=== PATIENT | female | born 1985 | race Caucasian/White ===

== ENCOUNTER → 2018-02-22 | Outpatient (CLI) | payer OTHER ==
[~2018-02-22] MED LIST: AZELASTINE137 MCG/0. NASAL; FLOVENT HFA12 G1 INH; LEVOTHYROXINE137 MCG PO; MULTIVITAMINS1 EAC7 PO; ONDANSETRON ODT8 MG PO; RANITIDINE HCL300 MG PO; SINGULAIR 10 MG10 M1 PO
== END ==
LOC: ULTRA 08:07
DX: K80.20 Calculus of gallbladder without cholecystitis without obstruction (principal); R94.5 Abnormal results of liver function studies

== ENCOUNTER 2018-03-05 08:48 | Observation (INO) | payer OTHER ==
[~2018-03-05] VITALS: Ht 162.6 cm; Wt 90.7 kg
--- NOTE | ~2018-03-05 | H ---
[facility] [place] [address] HISTORY AND PHYSICAL Name: RYDER HERNANDEZ Room #: PRE [facility] M.R.#: [id number] Admission: Attend Phys: Jomar Armstrong MD Discharge: Date of : 81 Report #: [id number] THIS REPORT FOR: //name// CC: [facility] physician/PCP Jomar Armstrong DATE OF SERVICE: 03/05/2018 ADMITTING DIAGNOSIS: Cholecystitis with cholelithiasis. HISTORY OF PRESENT ILLNESS: The patient is a 33-year-old who about a month ago complained of being feverish and cold spells. This lasted for about 5 days. This thing got better. She thought that she had a viral illness. Subsequent to that, she started feeling sick again. She has been complaining of nausea and chills. The nausea seems to be related to eating food. When she switched herself to a bland diet, the nausea is not as bad. The patient has indigestion and has been taking quite a bit of Tums. Complains of belching. Her abdomen seems to be turning on herself. She has a bubbling sensation in her chest. She also has been taking Zantac. Has had episodes of diarrhea. One episode occurred after eating cheese and stuffed mushroom, things that she has been trying to avoid and she did have nausea issues after that. The patient has had some back pains. No prior issues with food. Low-grade temperature of 99s. No urinary symptoms. No family history of gallbladder disease. The patient came to see me after having a hepatobiliary scan that showed a low gallbladder ejection fraction of 10%. She did not have any symptom reproduction. She had not had an ultrasound yet. Ultrasound was ordered and she does have gallstone. There is a stone that measures about 1.4 cm that is at the neck of the gallbladder. The patient is recommended to have gallbladder removed to treat her symptomatic cholecystitis and cholelithiasis. PAST MEDICAL HISTORY: The patient has a history of asthma. She is hypothyroid. The patient denies heart disease, denies high blood pressure, denies diabetes, denies liver disease, denies kidney disease, and denies other pulmonary issues besides asthma. No history of bleeding disorder, no history of blood clot. MEDICATIONS: Synthroid 137 mcg a day, Singulair, multivitamin, Zantac, nasal spray for allergies. ALLERGIES TO MEDICATION: None. PAST SURGICAL HISTORY: The patient has had 2 C-sections. She has had a tonsillectomy and adenoidectomy. FAMILY HISTORY: There is high blood pressure, sleep apnea, thyroid disorder in the family. [address] [address] HISTORY AND PHYSICAL Name: RYDER HERNANDEZ Room #: PRE [facility] M.R.#: [id number] Admission: Attend Phys: Jomar Armstrong MD Discharge: Date of : 81 Report #: [id number] SOCIAL HISTORY: The patient works as an retail event assistant. She does not smoke. She drinks about 4 glasses of alcohol per week. REVIEW OF SYSTEMS: No headache or blurred vision. Occasional asthma. No numbness or weakness. No history of any weight loss. PHYSICAL EXAMINATION: GENERAL: The patient is well-developed female, in no acute distress. HEENT: Pupils react to light. Extraocular muscles are intact. Sclerae nonicteric. NECK: Soft and supple, no masses. LUNGS: Clear to auscultation. HEART: Regular rate and rhythm. No murmur or gallop. ABDOMEN: Soft and nontender. No mass, no ascites, no guarding. Negative Hinkle sign. EXTREMITIES: No cyanosis, clubbing or edema. IMPRESSION: The patient is a 33-year-old with nausea and back pain. She has had quite a bit of indigestion type symptoms. The patient initially had a PIPIDA scan that showed a poor gallbladder ejection fraction of 10%. Her ultrasound did show a gallstone. The patient clinically does have cholecystitis with chronic cholecystitis, cholelithiasis. Surgery is recommended. Laparoscopic cholecystectomy was discussed in detail. Risks of procedure discussed. Risks of bleeding, infection, common bile duct injury were discussed. The patient understands the procedure, the risks and wishes to proceed. By: [id number] Jomar Armstrong MD /nt
--- NOTE | ~2018-03-05 | O ---
[facility] [place] [address] [address] OPERATIVE REPORT Name: RYDER HERNANDEZ Room #: 424-P [facility] M.R.#: [id number] Admission: 03/05/18 Attend Phys: Jomar Armstrong MD Discharge: Date of : 81 Report #: [id number] THIS REPORT FOR: //name// CC: [facility] physician/PCP Jomar Armstrong DATE OF SERVICE: 03/05/2018 PREOPERATIVE DIAGNOSIS: Cholecystitis with cholelithiasis. POSTOPERATIVE DIAGNOSIS: Cholecystitis with cholelithiasis. PROCEDURE PERFORMED: Laparoscopic cholecystectomy with intraoperative cholangiogram. SURGEON: Jomar Armstrong M.D. ANESTHESIA: General anesthesia. COMPLICATIONS: None. ESTIMATED BLOOD LOSS: 5 mL FINDINGS: There was a 1.4 cm gallstone. There was significant cholesterolosis in the mucosa of the gallbladder. There were adhesions surrounding the gallbladder consistent with chronic inflammation. Intraoperative cholangiogram showed small sized common hepatic duct. No filling defect. DESCRIPTION OF PROCEDURE: With the patient under general anesthesia, the abdomen was prepped and draped in sterile fashion. IV antibiotic was administered. Timeout was performed. A 0.25% Marcaine was used to anesthetize the skin and subcutaneous tissue. The fascia was identified and brought up with hemostat. Fascia was then opened under visualization. It turned out the fascia was actually deeper. The Veress needle was then placed through the peritoneum. Abdominal cavity was insufflated with CO2. After creating pneumoperitoneum pressure of 15, an 11 mm trocar was placed into the pneumoperitoneum without difficulty. Two 5 mm trocars were placed in the right upper quadrant and a 5 mm trocar was placed in right epigastrium. The gallbladder was identified. Liver appeared normal. The gallbladder was lifted over the liver. There was adhesion to the gallbladder laterally of thin fatty tissue and these adhesions were taken down. Proximal gallbladder was then identified. A second grasper was placed in the proximal gallbladder. Peritoneum was then dissected free over the triangle of Calot mediolaterally and then medially. The cystic duct was then isolated. The common duct was essentially not visible. There was a darkish tissue, which was probably the common duct. This was medial posteriorly located. The cystic duct was then isolated. After isolating the cystic duct, a clip was placed in [facility] [address] [place] [address] OPERATIVE REPORT Name: RYDER HERNANDEZ Room #: 424-P [facility] M.R.#: [id number] Admission: 03/05/18 Attend Phys: Jomar Armstrong MD Discharge: Date of : 81 Report #: [id number] junction of cystic duct to the gallbladder. Opening was made in the cystic duct. Cholangiogram catheter was placed. I could only get the tip of the cholangiogram catheter in the opening of the cystic duct. The catheter was held with a clip. Fluoroscopic cholangiogram was obtained. The contrast did flow through the catheter into the cystic duct and then the common duct. Common duct filled out well, small in size, no filling defect. There was some leak of contrast at the cannulation site due to the difficulty getting a seal here. The catheter was then removed. The proximal cystic duct was then clipped x 2 and then divided. The cystic artery was then isolated. The cystic artery was tacked to divide, clipped x 2 proximally, 1 distally and then divided. There was a posterior small cystic artery, this was also isolated and clipped x 2 proximally and 1 distally and then divided. Gallbladder freed from the liver bed without difficulty using cautery. Once the gallbladder was free, it was removed through the infraumbilical port by placing that into a specimen bag. The specimen bag was brought out, part of the gallbladder was then seen. The gallbladder was grasped and the bile was suctioned out. The gallbladder was then able to be pulled out in the bag intact. The gallbladder was opened up. There was a stone identified in the gallbladder that measured just like the ultrasound suggested a 1.4 mm and the gallbladder wall containing pretty severe yellowish streaking consistent with cholesterolosis. Liver bed was checked, hemostasis excellent. The clips were intact. Irrigation was performed. Irrigation was aspirated out. Trocars were then removed under visualization. CO2 was evacuated. The fascia defect was then better identified. The graft hemostat was placed on the fascia edges. The fascia was then closed with [id number] 0 Vicryl. We will consult closed with [id number] 0 Vicryl x 1 with single interrupted 0 Vicryl. Skin was irrigated. Skin was then closed with 5-0 PDS. Steri-Strip, Band-Aids applied. The patient tolerated procedure well. By: [id number] Jomar Armstrong MD /nt
[2018-03-05 10:50] VITALS: BP 117/75
[2018-03-05 15:08] VITALS: BP 121/77
[2018-03-05 15:44] VITALS: BP 113/70
[2018-03-05 19:20] VITALS: BP 122/79
[2018-03-06 03:15] VITALS: BP 100/53
[2018-03-06 08:00] VITALS: BP 113/68
[2018-03-06 08:30] VITALS: BP 113/68
[2018-03-06] MEDS ORDERED: NORCO 5-325 TA1 EACH PO (11:16)
[2018-03-06 12:00] VITALS: BP 113/68
== END 2018-03-06 12:55 | disposition home or self-care (01) ==
LOC: OR 08:48 → TBACV 08:48 → TBA 13:28 → 4E 13:29 → OR 13:29 → ENTRNSPT 03-06 12:19 → EDTRNSPTSTS 03-06 12:23 → 4E 03-06 12:55
DX: K80.10 Calculus of gallbladder with chronic cholecystitis without obstruction (principal); J45.909 Unspecified asthma, uncomplicated; E03.9 Hypothyroidism, unspecified; Z79.899 Other long term (current) drug therapy; Z98.890 Other specified postprocedural states
CPT/HCPCS: 50010; 50101; 50411; 50555; 50558; 51489; 51687; 53307; 53310; 53312; 55245; 55317; 56462; 56525; 56526; 62110; 62900; 70005